=== PATIENT | male | born 1950 | race Caucasian/White ===

== ENCOUNTER 2023-09-20 09:47 | Outpatient (CLI) | payer MEDICARE, OTHER | END 2023-09-20 09:48 | disposition home or self-care (01) | LOC: CSHRAD 09:47 | PROVIDERS: ATTEND Nurse Practitioner Family | DX: N30.40 Irradiation cystitis without hematuria (principal); N39.492 Postural (urinary) incontinence | CPT/HCPCS: 71046 ==